=== PATIENT | male | born 1975 | race Caucasian/White ===

== ENCOUNTER → 2020-10-16 11:00 | Outpatient (BNVA) | payer SELFPAY | PROVIDERS: Family Provider Nurse Practitioner Family; PCP Nurse Practitioner Family; Visit Provider Internal Medicine | DX: E03.9 Hypothyroidism, unspecified (principal) | CPT/HCPCS: 80053; 80061; 83036; 84443; 85025 ==

== ENCOUNTER 2021-05-10 19:26 | Emergency (ER) | payer OTHER, MEDICAID, SELFPAY ==
[2021-05-10 19:33] VITALS: BP 177/102; PULSE 73; RESP 18; TEMP 36.4; O2SAT 100; BMI 38.5
--- NOTE | 2021-05-10 19:54 | ED_ITS ---
HPI - Eye Problem General: Chief complaint: Eye Problems Stated complaint: somthing in Left eye Time Seen by Provider: 05/10/21 19:45 Source: patient and family Mode of arrival: ambulatory Limitations: no limitations History of Present Illness: HPI Narrative: Patient is a 45-year-old male who presents to ED today for evaluation of left eye pain. Patient states he began noticing severe left eye pain this morning. He initially thought it was secondary to his contact lens so he removed the lens and irrigated the eye without much relief. He states he is continued to irrigate the eye several times throughout the day the pain does not seem to be improving. He has a foreign body sensation. No known activities in which he would have obtained a foreign body. He is not having any visual changes. No discharge. He has not had any direct injury or trauma to the eye. Tetanus is up-to-date. MD chief complaint: eye pain Onset (ago): hour(s) Onset description: awoke with symptoms Duration: constant Location: left eye Eye Symptoms: pain and foreign body sensation Place: home Mechanism: none Severity: severe Associated symptoms: Reports no associated symptoms; Denies fever(s) or headache(s) Treatments Prior to Arrival: irrigated eye and removed contact lens Related Data: Patient tetanus UTD: Yes Review of Systems Const: Denies: fever(s), chills, body aches, fatigue or malaise Eyes: Reports: photophobia and eye discomfort; Denies: change in vision, blurry vision, eye discharge, floaters or seeing flashes Neuro: Denies: headache(s) PFS ED PFSH: Social History Smoking and tobacco status: current every day smoker smokeless tobacco Alcohol intake: never History of recent travel: No Physical Exam Const: COMMON NORMALS: no acute distress, patient oriented x3, no limitations, alert and well nourished GENERAL APPEARANCE: cooperative ORIENTATION/CONSCIOUSNESS: Yes awake, Yes oriented to person, Yes oriented to place and Yes oriented to time HENMT: COMMON NORMALS: normocephalic and atraumatic HEAD & SCALP: normocephalic and atraumatic Eye: COMMON NORMALS: Equal, round and reactive pupils present and EOMs intact bilaterally GENERAL EYE: normal light reflex PERIORBITAL: periorbital findings normal EYELID: eyelids normal (eyelids everted and no fb noted) CONJUNCTIVA: Yes conjunctival abnormal positive left conjunctival injection SCLERA: sclerae normal CORNEA: Yes fluorescein used PUPIL: Yes Equal, round and reactive pupils present DIRECT OPHTHALMOSCOPY: Yes normal light reflex EYE IMAGES: 1. small pingueculum that pt states is chronic 2. small circular fluorescein uptake Neck/C-Spine: COMMON NORMALS: full ROM, no lymphadenopathy and no meningeal signs Neuro: FERMIN COMA SCALE: document GCS findings Maxwell coma scale eye opening: Spontaneous Fermin coma scale verbal response: Orientated Maxwell coma scale motor response: Obey commands Fermin coma scale total score: 15 COMMON NORMALS: patient oriented x3, CN's II-XII intact bilaterally, moves all extremities, no focal motor deficits and no sensory deficits noted SENSORIUM/ORIENTATION: Yes alert, Yes oriented to person, Yes oriented to place and Yes oriented to time MENINGEAL SIGNS: Yes no meningeal signs Course Vital Signs: Vital signs: Vital Signs Temperature 97.5 F L 05/10/21 19:33 Pulse Rate 74 05/10/21 19:58 Respiratory Rate 19 H 05/10/21 19:58 Blood Pressure 179/102 05/10/21 19:58 Pulse Oximetry 99 05/10/21 19:58 MDM - Eye Problem MDM Narrative: Medical decision making narrative: Patient here with significant discomfort to his left eye. No fbs noted. No injury to his globe. He does have a small circular area to his superior cornea with fluorescein upta ke. Given his contact lens usage and his significant discomfort I have a suspicion for a small corneal ulcer. He will be placed on erythromycin ointment for the lubricating factor and tobramycin to cover for pseudomonas. Will have CM set him up with ophthalmology maria eugenia. Strict return to ED precautions given. Discharge Plan Discharge Patient Disposition: Home Clinical Impression: Corneal ulcer of left eye Condition: Stable Prescriptions: New tobramycin 0.3 % drops 2 drp ophthalmic (eye) Q4H Qty: 5 RF: 0 erythromycin 5 mg/gram (0.5 %) ointment 1 applic ophthalmic (eye) Q4H 7 Days Qty: 1 RF: 0 hydrocodone-acetaminophen 5-325 mg tablet 1 tab PO Q4H PRN (Reason: pain) Qty: 14 RF: 0 No Action famotidine [Pepcid AC] 20 mg tablet 20 mg PO DAILY RF: 0 fluconazole [Diflucan] 200 mg tablet 200 mg PO DAILY Qty: 7 RF: 8 Dexilant 60 mg capsule,biphase delayed releas 60 mg PO DAILY Qty: 30 RF: 4 levothyroxine 50 mcg capsule 50 mcg PO DAILY Qty: 90 RF: 1 alprazolam [Xanax] 0.5 mg tablet 0.5 mg PO DAILY PRN (Reason: anxiety) Qty: 30 RF: 0 omeprazole 40 mg capsule,delayed release(DR/EC) 40 mg PO DAILY Qty: 30 RF: 3 Discharge Orders: Discharge ED (Routine); Ordered 05/10/21 Ordered By: Mariama Watson Referrals: Lakhwinder Neri MD [Physician] - Patient Instructions: Corneal Ulcer (ED) Activity Restrictions/Additional Instructions: As we discussed please begin using both antibiotics immediately. Case management should contact you tomorrow to set you up with your appointment with Dr. Neri. You need to return to the emergency department immediately for worsening or uncontrollable pain, visual changes, or any other concerns you may have. Coding Level of Care Code ED [employer] for Martinez Hobson
[2021-05-10 19:58] VITALS: BP 179/102; PULSE 74; RESP 19; O2SAT 99
[2021-05-10] MEDS: fluorescein 1 mg Strip EYE-LEFT (20:07)
[2021-05-10] MEDS: eye irrigation 30 mL Btl EYE-LEFT (20:07)
[2021-05-10] MEDS: tetracaine 0.5% Op Soln 4 mL Btl 1 DROP EYE-LEFT (20:08)
--- NOTE | 2021-05-11 11:16 | DCPLANNER ---
digital strategy manager had message to schedule a follow up appointment with ophthalmology. digital strategy manager called phone number [phone], unable to speak with patient at this time, a voicemail was left for patient to return mental health case manager phone call.
== END 2021-05-10 21:15 | disposition home or self-care (01) ==
PROVIDERS: Emergency Provider Physician Assistant
DX: H16.002 Unspecified corneal ulcer, left eye (principal); F17.210 Nicotine dependence, cigarettes, uncomplicated
CPT/HCPCS: 99282

== ENCOUNTER → 2021-09-21 16:11 | Outpatient (BNVA) | payer MEDICAID, SELFPAY | PROVIDERS: Visit Provider Internal Medicine | DX: R30.0 Dysuria (principal); R10.13 Epigastric pain; E03.9 Hypothyroidism, unspecified | CPT/HCPCS: 81003; 84443 ==